=== PATIENT | female | born 1975 | race Caucasian/White ===

== ENCOUNTER 2025-05-20 03:03 | Inpatient (IN) | payer OTHER, SELFPAY ==
[2025-05-19 19:52] VITALS: BP 170/94
[2025-05-19 20:45] LABS: Hematocrit 39.3 % (37.0-47.0); Hemoglobin 12.7 g/dL (12.0-16.0); Mean Corp Hgb Conc. 32.3 g/dL (33.0-37.0); Mean Corpuscular Volume 82.6 fL (81.0-99.0); Nucleated Red Blood Cells % 0 %; Platelet Count 396 10^3/uL (130-400); Red Cell Dist. Width 14.6 % (11.5-14.5)
[2025-05-19] MEDS: NSS 1000 IV ×2 (20:45→22:24)
[2025-05-19] MEDS: ZOFRAN 4 MG IV (20:45)
[2025-05-19 21:23] LABS: ALT (SGPT) 22 U/L (0-35); AST (SGOT) 26 U/L (14-36); Albumin 4.6 g/dl (3.5-5.0); Alkaline Phosphatase 116 U/L (38-126); Blood Urea Nitrogen 15 mg/dl (7-17); Calcium 9.9 mg/dl (8.4-10.2); Carbon Dioxide 21 mmol/L (22-30); Chloride 105 mmol/L (98-107); Glucose 176 mg/dl (70-99); Lipase 142 U/L (23-300); Potassium 4.4 mmol/L (3.5-5.1); Sodium 138 mmol/L (135-145); Total Protein 7.8 g/dl (6.3-8.2); eGFR > 60.00
--- NOTE | 2025-05-19 22:00 | ED.GENMED ---
History of Present Illness
<Tracey Dent PA-C - Last Filed: 05/20/25 01:19>
General
Chief Complaint: Abdominal Symptoms
Source: patient and spouse
Exam Limitations: none
Time Seen by Provider: 05/19/25 21:38
History of Present Illness
History of Present Illness:
49yoF with a history of hypertension, prediabetes, and hypothyroidism presenting with her for evaluation of vomiting and diarrhea. Symptoms began 2 days ago with diarrhea she developed vomiting yesterday. She has vomited approximately 10
times in the last 24 hours. She also reports chills and abdominal discomfort. She believes her symptoms may be related to her Mounjaro. She had similar symptoms last week which resolved spontaneously. She denies any hematemesis, hematochezia,
chest pain, shortness of breath. No recent travel, sick contacts, suspicious food intake, or recent antibiotics.
Past History
<Tracey Dent PA-C - Last Filed: 05/20/25 01:19>
Past History
ED Past Medical History: None and NIDDM
ED Past Surgical History: Tonsilectomy
Social History
Tobacco: Non-smoker
Alcohol: None
Drug: None
Personal:
Living: with family
Phy Exam
<Tracey Dent PA-C - Last Filed: 05/20/25 01:19>
Physical Exam
Physical Exam:
Appears uncomfortable, dry heaving during exam, rigors noted
General Physical Exam
General Presentation: no apparent distress
General Skin: warm and dry
General Habitus: normal
General Mental: alert
ENT Exam
ENT Exam: normocephalic
Cardiovascular Exam
Cardiovascular Exam: regular rate/rhythm
Pulmonary Exam
Pulmonary Exam: lungs clear, no respiratory distress, no rales, no crackles, no rhonchi and no wheezing
Gastrointestinal Exam
Gastrointestinal Exam: soft, non distended and other (Generalized abdominal tenderness. Abdomen soft, nondistended. No rebound or guarding.)
Neurological Exam
Neurological Exam: alert
[place] Coma Scale
Eye Opening: Spontaneous
Verbal Response: Oriented
Motor Response: Obeys Commands
GCS Total Score: 15
Skin Exam
Skin Exam: normal color and warm/dry
<Nabil Holt DO - Last Filed: 05/20/25 01:44>
[place] Coma Scale
GCS Total Score: 15
Course
<Tracey Dent PA-C - Last Filed: 05/20/25 01:19>
Orders/Labs/Results
Orders:
Orders
05/19/25 20:20
IV Insert/Care/Rem.- Treatment PRN
05/19/25 20:39
Complete Blood Count/With Diff Urgent
Comprehensive Metabolic Panel Urgent
HCG, Serum Qualitative Screen Urgent
Comment: ADD ON
Lipase Urgent
05/19/25 20:40
0.9% Sodium Chloride 1000 ml [Nss] 1,000 ml IV BOLUS
Ondansetron Injectable [Zofran] 4 mg IV NOW STA
05/19/25 20:41
Ondansetron Injectable [Zofran] 4 mg .ROUTE .[facility] ONE
05/19/25 21:58
CDIFF [C difficile Antigen & Toxins] Urgent
ELIOT Source: Feces/Stool
Specimen Description:
Date Specimen was Collected: 05/19/25
Time Specimen was Collected: 22:39
Stool Culture Urgent
ELIOT Source: Feces/Stool
Specimen Description:
Date Specimen was Collected: 05/19/25
Time Specimen was Collected: 22:39
0.9% Sodium Chloride 1000 ml [Nss] 1,000 ml IV BOLUS
Diphenhydramine [Benadryl] 25 mg IV NOW STA
Ketorolac [Toradol] 15 mg IV NOW STA
Prochlorperazine [Compazine] 10 mg IV NOW STA
05/19/25 21:59
CT Abd/pelvis W Iv Cont Urgent
Comment:
Reason For Exam: generalized abd pain, vomiting, diarrhea, fever
05/19/25 22:06
Urinalysis Reflex To Culture Urgent
Date Specimen was Collected: 05/19/25
Time Specimen was Collected: 20:21
Urine Microscopic Reflex Cult Urgent
Urine Culture Urgent
ELIOT Source: U
Specimen Description:
Date Specimen was Collected: 05/19/25
Time Specimen was Collected: 20:21
05/19/25 22:17
Add On- LAB Urgent
Tests Added?: qualitative HCG
COVID-19 Antigen Urgent
Source: Nasal Swab
Lactate Level [Lactic Acid] Urgent
Influenza A+B Rapid Molecular Urgent
ELIOT Source: Nasal Swab
Specimen Description:
05/20/25 00:49
Electrocardiogram (*1) Urgent
Reason for Study: QTc Monitoring
EKG- Treatment ONCE
05/20/25 00:50
Ondansetron Injectable [Zofran] 4 mg IV NOW STA
05/20/25 01:26
Venous Blood Gas Urgent
%Oxygen/Room Air: room air
Abnormal Lab Results
05/19/25 05/19/25 05/19/25
20:39 22:06 22:17
WBC 13.4 H 10^3/uL
(4.8-10.8)
MCH 26.7 L pg
(27.0-31.0)
MCHC 32.3 L g/dL
(33.0-37.0)
RDW 14.6 H %
(11.5-14.5)
Abs Immat Gran (auto) 0.1 H 10^3/uL
(0-0.05)
Absolute Neuts (auto) 11.4 H 10^3/uL
(1.4-6.5)
Neutrophils % 85.5 H %
(42.2-75.2)
Lymphocytes % 10.3 L %
(20.5-51.1)
Carbon Dioxide 21 L mmol/L
(22-30)
Glucose 176 H mg/dl
(70-99)
Lactic Acid 2.2 H mmol/L
(0.7-2.0)
Urine Ketones 3+ A
(Negative)
Ur Occult Blood Reflex 4+ A
(Negative)
Leukocyte Esterase Rfl 1+ A
(Negative)
Urine RBC 3-6 A /HPF
(0-2)
Urine Bacteria (Reflex) Few A
(Negative)
Urine Albumin (Reflex) 1+ A
(Neg - Trace)
05/19/25 20:39
05/19/25 20:39
Vital Signs
Initial and Last Documented VS:
Initial Vital Signs
Temp Pulse Resp BP Pulse Ox
98.2 F 93 18 170/94 99
05/19/25 19:52 05/19/25 19:52 05/19/25 19:52 05/19/25 19:52 05/19/25 19:52
Last Documented Vital Signs
Temp Pulse Resp BP Pulse Ox
99.0 F 93 18 134/74 95
05/20/25 00:22 05/19/25 19:52 05/19/25 19:52 05/20/25 01:09 05/20/25 01:11
<Nabil Holt DO - Last Filed: 05/20/25 01:44>
Orders/Labs/Results
Orders:
Orders
05/19/25 20:20
IV Insert/Care/Rem.- Treatment PRN
05/19/25 20:39
Complete Blood Count/With Diff Urgent
Comprehensive Metabolic Panel Urgent
HCG, Serum Qualitative Screen Urgent
Comment: ADD ON
Lipase Urgent
05/19/25 20:40
0.9% Sodium Chloride 1000 ml [Nss] 1,000 ml IV BOLUS
Ondansetron Injectable [Zofran] 4 mg IV NOW STA
05/19/25 20:41
Ondansetron Injectable [Zofran] 4 mg .ROUTE .[facility] ONE
05/19/25 21:58
CDIFF [C difficile Antigen & Toxins] Urgent
ELIOT Source: Feces/Stool
Specimen Description:
Date Specimen was Collected: 05/19/25
Time Specimen was Collected: 22:39
Stool Culture Urgent
ELIOT Source: Feces/Stool
Specimen Description:
Date Specimen was Collected: 05/19/25
Time Specimen was Collected: 22:39
0.9% Sodium Chloride 1000 ml [Nss] 1,000 ml IV BOLUS
Diphenhydramine [Benadryl] 25 mg IV NOW STA
Ketorolac [Toradol] 15 mg IV NOW STA
Prochlorperazine [Compazine] 10 mg IV NOW STA
05/19/25 21:59
CT Abd/pelvis W Iv Cont Urgent
Comment:
Reason For Exam: generalized abd pain, vomiting, diarrhea, fever
05/19/25 22:06
Urinalysis Reflex To Culture Urgent
Date Specimen was Collected: 05/19/25
Time Specimen was Collected: 20:21
Urine Microscopic Reflex Cult Urgent
Urine Culture Urgent
ELIOT Source: U
Specimen Description:
Date Specimen was Collected: 05/19/25
Time Specimen was Collected: 20:21
05/19/25 22:17
Add On- LAB Urgent
Tests Added?: qualitative HCG
COVID-19 Antigen Urgent
Source: Nasal Swab
Lactate Level [Lactic Acid] Urgent
Influenza A+B Rapid Molecular Urgent
ELIOT Source: Nasal Swab
Specimen Description:
05/20/25 00:49
Electrocardiogram (*1) Urgent
Reason for Study: QTc Monitoring
EKG- Treatment ONCE
05/20/25 00:50
Ondansetron Injectable [Zofran] 4 mg IV NOW STA
05/20/25 01:26
Venous Blood Gas Urgent
%Oxygen/Room Air: room air
Abnormal Lab Results
05/19/25 05/19/25 05/19/25
20:39 22:06 22:17
WBC 13.4 H 10^3/uL
(4.8-10.8)
MCH 26.7 L pg
(27.0-31.0)
MCHC 32.3 L g/dL
(33.0-37.0)
RDW 14.6 H %
(11.5-14.5)
Abs Immat Gran (auto) 0.1 H 10^3/uL
(0-0.05)
Absolute Neuts (auto) 11.4 H 10^3/uL
(1.4-6.5)
Neutrophils % 85.5 H %
(42.2-75.2)
Lymphocytes % 10.3 L %
(20.5-51.1)
Carbon Dioxide 21 L mmol/L
(22-30)
Glucose 176 H mg/dl
(70-99)
Lactic Acid 2.2 H mmol/L
(0.7-2.0)
Urine Ketones 3+ A
(Negative)
Ur Occult Blood Reflex 4+ A
(Negative)
Leukocyte Esterase Rfl 1+ A
(Negative)
Urine RBC 3-6 A /HPF
(0-2)
Urine Bacteria (Reflex) Few A
(Negative)
Urine Albumin (Reflex) 1+ A
(Neg - Trace)
05/19/25 20:39
05/19/25 20:39
Vital Signs
Initial and Last Documented VS:
Initial Vital Signs
Temp Pulse Resp BP Pulse Ox
98.2 F 93 18 170/94 99
05/19/25 19:52 05/19/25 19:52 05/19/25 19:52 05/19/25 19:52 05/19/25 19:52
Last Documented Vital Signs
Temp Pulse Resp BP Pulse Ox
99.0 F 93 18 134/74 95
05/20/25 00:22 05/19/25 19:52 05/19/25 19:52 05/20/25 01:09 05/20/25 01:11
<Tracey Dent PA-C - Last Filed: 05/20/25 01:19>
MDM/Problems Addressed
Differential Diagnosis Includes:
49yoF here with diarrhea x 2 days and vomiting x 1 day. Rigors noted during initial exam. Temp in triage normal but repeat temperature is 100.4. Patient actively vomiting. No signs of peritonitis on abdominal exam. Differential diagnosis includes
but is not limited to: Gastroenteritis, viral illness, colitis, diverticulitis, appendicitis, SBO
Initial ED plan: Workup initiated in triage. Leukocytosis noted with a white count of 13.4 which is possibly reactive secondary to vomiting. Will check lactate, COVID/flu swab, stool studies, UA, and CT abdomen. Patient received IV Zofran in
triage without improvement. Will trial IV Compazine/Benadryl.
<Tracey Dent PA-C - Last Filed: 05/20/25 01:19>
*Pulse Oximetry
SaO2: 99
Oxygen Mode of Delivery: Room air
Patient hypoxic: no
*EKG
Interpreted by ED Provider?: Yes
EKG Intrepretation Date: 05/20/25
Heart Rate: 84
Rate: normal
Rhythm: sinus
[place]: normal axis
Interval: normal interval
QRS Pattern: normal QRS
Ischemia: no ischemia
*Critical Care Note
Total Time (30-74mins, 75-104mins- exclusive of procedures): Not Applicable
<Tracey Dent PA-C - Last Filed: 05/20/25 01:19>
Update Note
Update Note:
Lactate 2.2. Viral testing negative. Preliminary [facility]ology report is negative for acute findings. UA with >30/LPF squamous epithelial cells suggesting contaminated sample. Patient with persistent vomiting despite multiple rounds of
antiemetics and failed p.o. challenge. Will admit for intractable symptoms.
ED Attending Note
<Tracey Dent PA-C - Last Filed: 05/20/25 01:19>
-
Portions of this chart may have been created with voice recognition software.� Occasional wrong word or��sound alike� substitutions may have occurred due to the inherent limitations of voice recognition software.
<Nabil Holt DO - Last Filed: 05/20/25 01:44>
ED Attending Note
Patient seen and examined by attending physician: Yes
I performed the substantive portion of visit, reviewed & personally made and approve the management plan that is documented in note by myself or ELOISE.: Yes
ED Attending Note:
49-year-old female who presents with intractable nausea and vomiting. Previous records reviewed including an admission in January 2022 for the same. Patient states she feels similar to the admission from that time.. She is on Mounjaro but has no
recent changes to the dosages. No obvious sick contacts. Nausea persist and unable to tolerate oral intake despite several rounds of antiemetics and IV fluids.
Discharge Plan
Departure
Patient Disposition: Admit
Date of Disposition: 05/20/25
Time of Disposition: 01:00
Presentation/result/management discussed w/ accepting MD/DO: Hospitalist
Discharge Problem:
Intractable nausea and vomiting
Prescriptions:
No Action
levothyroxine [Synthroid] 175 mcg Tablet
175 mcg PO DAILY
ondansetron 4 mg tablet,disintegrating
4 mg PO Q8HPRN PRN (Reason: nausea and vomiting) Qty: 10 0RF
amlodipine 5 mg Tablet
5 mg PO DAILY Qty: 30 0RF
pantoprazole [Protonix] 40 mg tablet,delayed release (DR/EC)
40 mg PO DAILY Qty: 30 0RF
Referrals:
UNKNOWN,NO INTERVIEW [Family Provider]
Interventions
Interventions:
*Risk Screen - Suicide Last Done: 05/19/25 19:54
*General Assessment Last Done: 05/19/25 20:46
*Neglect/Abuse Screening Last Done: 05/19/25 19:54
*ED- Fall Risk Assessment Last Done: 05/19/25 20:46
*ED COVID-19 Vaccine History Last Done: 05/19/25 20:46
*ED Influenza Vaccine History Last Done: 05/19/25 20:46
[id number] Assessment Last Done: 05/19/25 20:45
Discharge Date and Time
Print Language: BURKINAN
[2025-05-19 22:04] VITALS: BP 104/65; BMI 39.4
[2025-05-19 22:11] LABS: Urine Character Clear (Clear)
[2025-05-19] MEDS: COMPAZINE 10 MG IV (22:25)
[2025-05-19] MEDS: TORADOL 15 MG IV (22:26)
[2025-05-19] MEDS: BENADRYL 25 MG IV (22:28)
[2025-05-19 22:29] LABS: Urine Squamous Cell >30 /LPF (Few)
[2025-05-19 22:44] LABS: COVID-19 Antigen Negative (Negative)
[2025-05-19 22:47] LABS: HCG, Serum Qualitative Screen Negative
[2025-05-20] MEDS: ZOFRAN 4 MG IV ×3 (01:02→13:21)
[2025-05-20 01:09] VITALS: BP 134/74
[2025-05-20 01:56] LABS: Venous Blood Gas B.E. -0.4 mmol/L (-4 to +4); Venous Blood Gas O2 Sat % 92.7 %
[2025-05-20 02:00] VITALS: BP 120/57
--- NOTE | 2025-05-20 02:48 | HPS.HSE ---
Family Physician
-
Family Physician: NO INTERVIEW UNKNOWN
Chief Complaint
-
N/V/D
History of Present Illness
Patient is a 49y F with PMH significant for obesity and hypothyroidism who presents to ED complaining of N/V/D x 2 days. Patient states that she took her most recent dose of Mounjaro on Friday. That afternoon she developed diarrhea. Yesterday
she had diarrhea and N/V. Today she has had continued N/V, but no further diarrhea. Patient denies any recent travel, unusual food ingestions, etc. Her feels well and has no GI symptoms.
Patient has been on Mounjaro for > 1 year. No recent dose changes, etc.
She had a similar admission 3 years ago that was ultimately attributed to Ozempic. No clear evidence of infection was discovered at that time.
Medical History
Past Medical History
Past Medical History: Reports Other
Additional Past Medical History:
Hypothyroidism
Obesity
Impaired Fasting Glucose
Past Surgical History: Reports Other
Additional Past Surgical History:
T&A
Right Knee Arthroscopy
Right Lumpectomy (Benign)
Social History
Tobacco: Non-smoker
Alcohol: None
Drug: None
Family History
Family History: Other (Father: Prostate Cancer, DM-II Brother: Testicular Cancer Mother: HTN, DM-II)
Allergies / Home Medications
Allergies reflects when Allergies were last updated in [employer].
Home Medications with original date entered in [employer]
Allergy/Medication List:
Allergies
Allergy/AdvReac Type Severity Reaction Status Date / Time
acetaminophen (From Percocet) Allergy Rash Verified 01/31/22 23:21
oxycodone (From Percocet) Allergy Rash Verified 01/31/22 23:21
Home Medications
atorvastatin 20 mg tablet 20 mg PO HS 05/20/25
levothyroxine 175 mcg tablet (Synthroid) 175 mcg PO DAILY 05/20/25
losartan 50 mg tablet 50 mg PO DAILY 05/20/25
pantoprazole 40 mg tablet,delayed release 40 mg PO DAILY 05/20/25
tirzepatide 15 mg/0.5 mL subcutaneous pen injector (Mounjaro) 15 mg SC TU 05/20/25
vibegron 75 mg tablet (Gemtesa) 75 mg PO DAILY 05/20/25
Review of Systems
-
History Source: Patient
A 12 point ROS was completed and negative except as noted: Yes
Constitutional: Reports Fatigue; Denies Fever or Chills
Respiratory: Denies Cough or Trouble Breathing
Cardiac: Denies Chest Pain or Palpitations
Abdomen/GI: Reports Abdominal Pain, Nausea, Vomiting and Diarrhea; Denies Bloody Stools or Black Stools
: Denies Dysuria, Frequency or Flank Pain
Musculoskeletal: Denies Joint Pain or Edema
Neurological: Denies Dizzy or Headache
Psych: Denies Depression or Anxiety
Physical Exam
Vital Signs
Vital Signs
Temp Pulse Resp BP Pulse Ox
99.0 F 93 18 120/57 97
05/20/25 00:22 05/19/25 19:52 05/19/25 19:52 05/20/25 02:00 05/20/25 02:30
Physical Exam
General: Other (Ill-appearing 49y F in mild-moderate distress due to nausea.)
HEENT: Moist mucous membranes and PERRLA
Respiratory: Clear; No Wheezes, Rales or Rhonchi
Cardiac: S1/S2, Regular Rhythm and Murmur (II/ MAURI)
GI: Soft and Other (Mildly , diffusely tender. Pos BS.)
Musculoskeletal: No Clubbing, No Cyanosis and No Edema
Neuro: AO x 3
Laboratory Results
-
05/19/25 20:39
05/19/25 20:39
Laboratory Results
Lactic Acid 2.2 mmol/L (0.7-2.0) H 05/19/25 22:17
Total Bilirubin 0.8 mg/dl (0.2-1.3) 05/19/25 20:39
AST 26 U/L (14-36) 05/19/25 20:39
ALT 22 U/L (0-35) 05/19/25 20:39
Alkaline Phosphatase 116 U/L (38-126) 05/19/25 20:39
Lipase 142 U/L (23-300) 05/19/25 20:39
Impression/Plan
-
A/P: Patient is a 49y F with PMH significant for hypothyroidism and obesity who presents to ED complaining of N/V/D x 3 days.
Gastroenteritis
Intractable N/V/D
- Admit for further evaluation and treatment.
- Suspect viral gastroenteritis given fever, symptoms, etc.
- Less likely related to Mounjaro as not new / no recent dose changes / etc.
- Supportive care including IVFs, antiemetics, etc.
- Check stools studies if there is further diarrhea.
- Monitor for improvement in symptoms.
- Consider GI evaluation if symptoms worsen or persist.
Cholelithiasis
- Seen on CT scan this evening (and during prior admission as well)
- No abnormalities noted other than presence of stones.
- No GB thickening or pericholecystic fluid.
- No abnormalities in LFTs to suggest cholestasis / obstruction.
- Doubt her current presentation is related to cholelithiasis.
- Consider HIDA, etc if symptoms persist or there is concern for cholecystitis.
Hematuria
- UA with 4+ blood. No evidence of infection.
- CT done this evening with no obstructive uropathy. Done with IV contrast.
- No flank pain or urinary symptoms.
Hypothyroidism
- Continue T4 supplementation.
- Update TFTs.
Obesity due to excess calories
- Affects all aspects of care.
- Hold Mounjaro acutely (last dose of Friday just prior to symptom onset)
DVT Prophylaxis: SCDs
Code Status: Full
[2025-05-20] MEDS: LR 1000 IV ×3 (03:39→19:21)
[2025-05-20 05:20] LABS: Hematocrit 36.9 % (37.0-47.0); Hemoglobin 11.6 g/dL (12.0-16.0); Mean Corp Hgb Conc. 31.4 g/dL (33.0-37.0); Mean Corpuscular Volume 85.8 fL (81.0-99.0); Platelet Count 345 10^3/uL (130-400); Red Cell Dist. Width 14.7 % (11.5-14.5)
[2025-05-20 05:30] LABS: Blood Urea Nitrogen 14 mg/dl (7-17); Calcium 9.0 mg/dl (8.4-10.2); Carbon Dioxide 20 mmol/L (22-30); Chloride 111 mmol/L (98-107); Estimated Creatinine Clearance 117 ml/min; Glucose 150 mg/dl (70-99); Magnesium 2.0 mg/dl (1.6-2.3); Potassium 4.4 mmol/L (3.5-5.1); Sodium 141 mmol/L (135-145); eGFR > 60.00
[2025-05-20 06:58] VITALS: BP 123/68
[2025-05-20] MEDS: REGLAN 5 MG IV (08:22)
[2025-05-20] MEDS: SYNTHROID PO (08:26)
[2025-05-20] MEDS: PROTONIX IV 40 MG IV (08:27)
--- NOTE | 2025-05-20 10:19 | CM ---
Chart reviewed and met with patient at bedside
Lives in a 3 story home with . 5 RITA
PLOF independent with ADLs, ambulation and drives
no DME
PCP is Dr. Foremna
Has RX plan
Pharmacy is [facility] in [place].
no hx of VN nor SNF
DCP is to go home with no services vs services depending on her medical needs
can provide transportation
CM will continue to follow up with any dcp needs
[2025-05-20] MEDS: REGLAN 10 MG IV ×2 (11:45→20:34)
[2025-05-20 15:00] VITALS: BP 161/93
[2025-05-20 15:50] VITALS: BMI 38.9
--- NOTE | 2025-05-20 18:04 | W.PN.UPDATE ---
Update Note
Progress Note Update
Patient continues to have intractable nausea/vomiting
added Reglan scheduled to regimen
changed Zofran to Compazine prn
qtc check in the morning
giving decadron 4mg x1 empirically for now
will involve GI for further evaluation in morning
[2025-05-20] MEDS: COMPAZINE 5 MG IV (18:23)
[2025-05-20] MEDS: DECADRON 4 MG IV (18:24)
[2025-05-20] MEDS: BENADRYL 12.5 MG IV (22:57)
[2025-05-20 23:17] VITALS: BP 147/88
[2025-05-21] MEDS: LR 1000 IV ×4 (01:00→22:20)
[2025-05-21] MEDS: COMPAZINE 5 MG IV ×2 (01:02→08:02)
[2025-05-21] MEDS: REGLAN 10 MG IV ×3 (03:48→20:12)
[2025-05-21 05:16] VITALS: BMI 39.2
[2025-05-21 06:29] LABS: Blood Urea Nitrogen 16 mg/dl (7-17); Calcium 9.1 mg/dl (8.4-10.2); Carbon Dioxide 27 mmol/L (22-30); Chloride 106 mmol/L (98-107); Estimated Creatinine Clearance 91 ml/min; Glucose 128 mg/dl (70-99); Lipase 79 U/L (23-300); Potassium 4.2 mmol/L (3.5-5.1); Sodium 139 mmol/L (135-145); eGFR > 60.00
[2025-05-21 07:15] VITALS: BP 154/77
[2025-05-21] MEDS: PROTONIX IV 40 MG IV (07:59)
[2025-05-21] MEDS: SYNTHROID PO (08:03)
[2025-05-21] MEDS: FLUSH (NSS) 2 FLUSH IV ×4 (08:03→16:16)
[2025-05-21] MEDS: BENADRYL 25 MG IV (09:27)
--- NOTE | 2025-05-21 11:14 | CON.GI ---
Consultation
-
Date/Time Consultation Performed: 05/21/25
Performing Provider: Desmond Gentile MD
Reason for Consultation: Nausea
Medical History
Chief Complaint / HPI
Chief Complaint: nausea
History of Present Illness:
The patient is a 49-year-old female past medical history as noted who presents with nausea and vomiting. Her symptoms started a bit more than a week ago initially with vomiting and diarrhea, started to improve and then had significantly worsened
nausea with vomiting. She has early satiety over this past week as well. She has not had any further diarrhea since admission. She denies any bloody diarrhea. Denies any sick contacts, fever chills or bloody emesis. She has been on Mounjaro for
some time without any dose changes though did take her Mounjaro on last Friday, before symptoms started. She had similar symptoms a few years ago attributed to Ozempic, though had been tolerating Mounjaro. She has had an endoscopy some years ago,
usually follows with GI at [place].
Past Medical History
Past Medical History: Other (Obesity, hypothyroid, previous nausea vomiting.)
Past Surgical History: Other (TNA, right knee arthroscopy)
Social History
Tobacco: Non-Smoker
Alcohol: None
Family History
Family History: Reviewed & Not Pertinent
Allergies / Home Medications
Allergy/AdvReac Type Severity Reaction Status Date / Time
acetaminophen (From Percocet) Allergy Rash Verified 01/31/22 23:21
oxycodone (From Percocet) Allergy Rash Verified 01/31/22 23:21
�Medication �Instructions �Recorded
atorvastatin 20 mg tablet 20 mg PO HS High Cholesterol 05/20/25
levothyroxine 175 mcg tablet 175 mcg PO DAILY Thyroid 05/20/25
(Synthroid)
losartan 50 mg tablet 50 mg PO DAILY Blood Pressure 05/20/25
pantoprazole 40 mg tablet,delayed 40 mg PO DAILY gerd 05/20/25
release
tirzepatide 15 mg/0.5 mL 15 mg SC TU Weight Gain 05/20/25
subcutaneous pen injector
(Mounjaro)
vibegron 75 mg tablet (Gemtesa) 75 mg PO DAILY Urinary Issue 05/20/25
Review of Systems
-
All other systems: A 12 pt ROS was Negative except as stated above in HPI
Vital Signs
Temp Pulse Resp BP Pulse Ox
98.7 F 70 20 154/77 96
05/21/25 07:15 05/21/25 07:15 05/21/25 07:15 05/21/25 07:15 05/21/25 08:00
Physical Exam
Exam
General: NAD
HEENT: MMM, anicteric, no lymphadenopathy
Heart: Regular, no murmurs
Lungs: CTA bilaterally
Abdomen: normal bowel sounds, soft, no tenderness, no rebound or guarding, no masses, bruits or ascites
Extremeties: no edema
Skin: no rashes
Results
WBC 13.5 10^3/uL (4.8-10.8) H 05/20/25 04:59
Hgb 11.6 g/dL (12.0-16.0) L 05/20/25 04:59
Hct 36.9 % (37.0-47.0) L 05/20/25 04:59
MCV 85.8 fL (81.0-99.0) 05/20/25 04:59
Plt Count 345 10^3/uL (130-400) 05/20/25 04:59
Absolute Neuts (auto) 11.4 10^3/uL (1.4-6.5) H 05/19/25 20:39
Sodium 139 mmol/L (135-145) 05/21/25 05:29
Potassium 4.2 mmol/L (3.5-5.1) 05/21/25 05:29
Chloride 106 mmol/L (98-107) 05/21/25 05:29
Carbon Dioxide 27 mmol/L (22-30) 05/21/25 05:29
BUN 16 mg/dl (7-17) 05/21/25 05:29
Creatinine 0.9 mg/dL (0.6-1.0) 05/21/25 05:29
Calcium 9.1 mg/dl (8.4-10.2) 05/21/25 05:
Total Bilirubin 0.8 mg/dl (0.2-1.3) 05/19/25 20:39
AST 26 U/L (14-36) 05/19/25 20:39
ALT 22 U/L (0-35) 05/19/25 20:39
Alkaline Phosphatase 116 U/L (38-126) 05/19/25 20:39
Lipase 79 U/L (23-300) 05/21/25 05:29
Diagnostic Image Results:
CT:
IMPRESSION:
1. No acute intra-abdominal process identified.
2. Small hiatal hernia.
3. Cholelithiasis.
4. Hepatic fatty infiltration.
Prior GI Procedures:
EGD:
Colonoscopy:
Assessment / Plan
-
1. Nausea/vomiting: With symptoms that initially started with vomiting and diarrhea more than a week ago, now with persistent early satiety nausea and vomiting, likely initial viral gastroenteritis with now postinfectious delayed gastric emptying
compounded with GLP-1. CT scan otherwise unremarkable, labs otherwise remarkable, exam is benign. At this point we discussed continued supportive care, antiemetics, IV fluids. If no improvement then could consider endoscopy on Friday though other
etiologies including peptic ulcer disease seem very unlikely. We discussed dietary modifications moving forward including small, frequent, low bulky meals when she is feeling better.
-
-
Thank you for consultation and allowing me to participate in the patient's care. Please call the central control room operator GI physician during the after hours with any questions or concerns.
--- NOTE | 2025-05-21 13:00 | PTCARENOTE ---
Pt given scheduled dose of raglan and and 30 min later vomited bile, est 2 cups.
--- NOTE | 2025-05-21 13:27 | W.PN.HOSP.TC ---
Today's Communication/Plan
-
Patient continued to have intractable nausea vomiting
Remains at risk of cardiotoxicity from need of dual antiemetics
encourage oral intake as tolerated
Assessment / Plan
Assessment / Plan
Gastroenteritis
Intractable N/V/D - persisting
- Suspect viral gastroenteritis given fever, symptoms, etc.
- Patient using Mounjaro although no recent change in medication likely making patient prone for persistent nausea vomiting
- Patient currently on regimen of Reglan scheduled and Compazine as needed
- Given empiric Decadron 4mg yesterday in light of persistent symptoms
- GI evaluated and help appreciated.
Cholelithiasis
- Seen on CT scan this evening (and during prior admission as well)
- No abnormalities noted other than presence of stones.
- No GB thickening or pericholecystic fluid.
Hematuria
- UA with 4+ blood. No evidence of infection.
- CT done this evening with no obstructive uropathy. Done with IV contrast.
- No flank pain or urinary symptoms.
Hypothyroidism
- Continue T4 supplementation.
- Update TFTs.
Obesity due to excess calories
- Affects all aspects of care.
- Hold Mounjaro acutely (last dose of Friday just prior to symptom onset)
DVT Prophylaxis: SCDs
Code Status: Full
Care plan discussed with gastroenterology
Total time spent 50 minutes
Anticipated Discharge: 24 - 48 hours
Subjective/Interval History
-
Date of Service: May 21, 2025
continues to have nausea
no vomiting
no abd pain
Objective Data
-
Labs:
Laboratory Results
05/21/25
05:29
Sodium 139
Potassium 4.2
Chloride 106
Carbon Dioxide 27
BUN 16
Creatinine 0.9
Glucose 128 H
Calcium 9.1
Vital Signs:
Vital Signs
Temp Pulse Resp BP Pulse Ox
98.7 F 70 20 154/77 96
05/21/25 07:15 05/21/25 07:15 05/21/25 07:15 05/21/25 07:15 05/21/25 08:00
I&O
05/20/25 05/21/25 05/22/25
06:59 06:59 05:59
Intake Total 2039
Balance 2039
Review of Systems
-
Respiratory: Reports No Symptoms
Cardiac: Reports No Symptoms
Abdomen/GI: Reports Nausea; Denies Abdominal Pain or Vomiting
Physical Exam
-
General: Obese
HEENT: Negative Oxygen
Cardiac: Regular Rhythm and S1/S2; Negative Murmur
GI: Soft, Nontender and Nondistended
Neuro: Awake, Alert and Oriented
[2025-05-21 15:20] VITALS: BP 149/80
[2025-05-21] MEDS: COMPAZINE 10 MG IV ×2 (16:16→22:21)
[2025-05-21 22:28] VITALS: BP 138/72
[2025-05-22] MEDS: LR 1000 IV ×3 (03:50→19:47)
[2025-05-22] MEDS: REGLAN 10 MG IV ×2 (03:51→11:49)
[2025-05-22] MEDS: SYNTHROID PO ×2 (03:52→06:31)
[2025-05-22 05:01] VITALS: BMI 39.3
[2025-05-22 07:25] VITALS: BP 167/93
[2025-05-22 08:15] LABS: Blood Urea Nitrogen 14 mg/dl (7-17); Calcium 8.6 mg/dl (8.4-10.2); Carbon Dioxide 28 mmol/L (22-30); Chloride 100 mmol/L (98-107); Estimated Creatinine Clearance 102 ml/min; Glucose 106 mg/dl (70-99); Potassium 3.8 mmol/L (3.5-5.1); Sodium 134 mmol/L (135-145); eGFR > 60.00
[2025-05-22] MEDS: FLUSH (NSS) 2 FLUSH IV ×2 (09:09→11:47)
[2025-05-22] MEDS: PROTONIX IV 40 MG IV (09:10)
[2025-05-22] MEDS: SYNTHROID 175 MCG PO (09:10)
[2025-05-22] MEDS: COMPAZINE 10 MG IV ×2 (09:11→19:52)
--- NOTE | 2025-05-22 09:54 | W.PN.GI.CBS2 ---
Today's Communication / Plan
-
Please see assessment and plan for details.
Assessment / Plan
-
1. Nausea/vomiting: With symptoms that initially started with vomiting and diarrhea more than a week ago, now with persistent early satiety nausea and vomiting, likely initial viral gastroenteritis with now postinfectious delayed gastric emptying
compounded with GLP-1. CT scan otherwise unremarkable, labs otherwise remarkable, exam is benign. I reviewed obstruction series, no obvious ileus or obstruction though await official reading. At this point we discussed continued supportive care,
antiemetics, IV fluids. If no improvement then could consider endoscopy tomorrow.
Subjective
Subjective
Date of Service: May 22, 2025
Patient thing okay, had some episodes of vomiting overnight, though this morning states that feels a bit better, less frequent episodes. No bowel movements. No fevers or chills.
Objective
Data Reviewed
Laboratory Data:
Laboratory Results
05/20/25 04:59
05/22/25 07:00
Laboratory Results
Magnesium 2.0 mg/dl (1.6-2.3) 05/20/25 04:59
Total Bilirubin 0.8 mg/dl (0.2-1.3) 05/19/25 20:39
AST 26 U/L (14-36) 05/19/25 20:39
ALT 22 U/L (0-35) 05/19/25 20:39
Alkaline Phosphatase 116 U/L (38-126) 05/19/25 20:39
Lipase 79 U/L (23-300) 05/21/25 05:29
Vital Signs and I&O:
Vital Signs
Temp Pulse Resp BP Pulse Ox
98.8 F 69 20 167/93 97
05/22/25 07:25 05/22/25 07:25 05/22/25 07:25 05/22/25 07:25 05/22/25 07:25
I&O
05/21/25 05/22/25 05/23/25
06:59 05:59 06:59
Intake Total 2039
Balance 2039
Physical Exam
Physical Exam
General: NAD
Abdomen: normal bowel sounds, soft, minimal right lower quadrant tenderness, no masses or bruits, no ascites
--- NOTE | 2025-05-22 13:13 | W.PN.HOSP.TC ---
Today's Communication/Plan
-
Abdominal x-ray reviewed, no acute findings
Continue supportive care
Encourage oral intake as tolerated
Assessment / Plan
Assessment / Plan
Gastroenteritis
Intractable N/V/D - persisting
- Suspect viral gastroenteritis given fever, symptoms, etc.
- Patient using Mounjaro although no recent change in medication likely making patient prone for persistent nausea vomiting
- Patient currently on regimen of Reglan scheduled and Compazine as needed. QTc 430ms yesterday, repeat check ordered.
- Given empiric Decadron 4mg on admission
- GI involved in care and recommended medical management. May consider EGD if continues to have symptoms
- Abdominal x-ray done as exam today suggestive of possible distention/tympanic bowel sound although no signs of ileus/obstruction on x-ray
Cholelithiasis
- Seen on CT scan this evening (and during prior admission as well)
- No abnormalities noted other than presence of stones.
- No GB thickening or pericholecystic fluid.
Hematuria
- UA with 4+ blood. No evidence of infection.
- CT done this evening with no obstructive uropathy. Done with IV contrast.
- No flank pain or urinary symptoms.
Hypothyroidism
- Continue T4 supplementation.
- Update TFTs.
Obesity due to excess calories
- Affects all aspects of care.
- Hold Mounjaro acutely (last dose of Friday just prior to symptom onset)
Essential HTN
- Uncontrolled as not able to take oral medication
- As needed hydralazine ordered for systolic BP greater then 160
DVT Prophylaxis: SCDs
Code Status: Full
Care plan discussed with gastroenterology
Anticipated Discharge: 24 - 48 hours
Subjective/Interval History
-
Date of Service: May 22, 2025
Continues to feel nauseous, reported vomiting episode overnight
Denies abdominal pain
Afebrile
Objective Data
-
Labs:
Laboratory Results
05/22/25
07:00
Sodium 134 L
Potassium 3.8
Chloride 100
Carbon Dioxide 28
BUN 14
Creatinine 0.8
Glucose 106 H
Calcium 8.6
Vital Signs:
Vital Signs
Temp Pulse Resp BP Pulse Ox
98.8 F 69 20 167/93 97
05/22/25 07:25 05/22/25 07:25 05/22/25 07:25 05/22/25 07:25 05/22/25 07:25
I&O
05/21/25 05/22/25 05/23/25
06:59 05:59 06:59
Intake Total 2039 3440 / 3440
Balance 2039 3440 / 3440
Review of Systems
-
Respiratory: Reports No Symptoms
Cardiac: Reports No Symptoms
Abdomen/GI: Reports Nausea and Vomiting; Denies Abdominal Pain
Physical Exam
-
General: Obese
HEENT: Negative Oxygen
Cardiac: Regular Rhythm and S1/S2; Negative Murmur
GI: Soft, Nontender and Distended; Negative Normal Bowel Sounds (Tympanic)
Neuro: Awake, Alert and Oriented
[2025-05-22 15:30] VITALS: BP 155/81
[2025-05-22] MEDS: REGLAN IV (21:33)
[2025-05-22 23:33] VITALS: BP 143/84
[2025-05-23] MEDS: LR 1000 IV ×2 (02:16→09:23)
[2025-05-23] MEDS: REGLAN IV ×2 (04:33→12:52)
[2025-05-23 05:41] VITALS: BMI 39.2
[2025-05-23] MEDS: SYNTHROID 175 MCG PO (05:48)
--- NOTE | 2025-05-23 06:01 | W.PN.GI.CBS2 ---
Today's Communication / Plan
-
Please assessment and plan for details.
Assessment / Plan
-
1. Nausea/vomiting: With symptoms that initially started with vomiting and diarrhea more than a week ago, now with persistent early satiety nausea and vomiting, likely initial viral gastroenteritis with now postinfectious delayed gastric emptying
compounded with GLP-1. CT scan otherwise unremarkable, labs otherwise remarkable, exam is benign. Repeat obstruction series negative. She is feeling much better overnight, the first night with no vomiting. Will continue supportive care, if
improving can advance diet to full liquids later today. Given improvement will hold on endoscopy for now.
Subjective
Subjective
Date of Service: May 23, 2025
Patient feeling better overnight, first night that she is not had any vomiting. Still slightly nauseous though again much improved.
Objective
Data Reviewed
Laboratory Data:
Laboratory Results
05/20/25 04:59
Laboratory Results
Magnesium 2.0 mg/dl (1.6-2.3) 05/20/25 04:59
Total Bilirubin 0.8 mg/dl (0.2-1.3) 05/19/25 20:39
AST 26 U/L (14-36) 05/19/25 20:39
ALT 22 U/L (0-35) 05/19/25 20:39
Alkaline Phosphatase 116 U/L (38-126) 05/19/25 20:39
Lipase 79 U/L (23-300) 05/21/25 05:29
Vital Signs and I&O:
Vital Signs
Temp Pulse Resp BP Pulse Ox
99.2 F 72 18 143/84 94
05/22/25 23:33 05/22/25 23:33 05/22/25 23:33 05/22/25 23:33 05/22/25 23:33
I&O
05/21/25 05/22/25 05/23/25
06:59 05:59 06:59
Intake Total 2039 3440 / 3440 2419 / 2419
Balance 2039 / 2419
Physical Exam
Physical Exam
General: NAD
Abdomen: normal bowel sounds, soft, no tenderness, no masses or bruits, no ascites
[2025-05-23 07:18] VITALS: BP 153/98
[2025-05-23 09:11] LABS: Blood Urea Nitrogen 9 mg/dl (7-17); Calcium 9.0 mg/dl (8.4-10.2); Carbon Dioxide 29 mmol/L (22-30); Chloride 97 mmol/L (98-107); Estimated Creatinine Clearance 102 ml/min; Glucose 108 mg/dl (70-99); Potassium 3.8 mmol/L (3.5-5.1); Sodium 134 mmol/L (135-145); eGFR > 60.00
[2025-05-23] MEDS: NSS (PRESERVATIVE FREE) 10 ML IV (09:15)
[2025-05-23] MEDS: PROTONIX IV 40 MG IV (09:15)
--- NOTE | 2025-05-23 13:13 | W.PN.HOSP.TC ---
Today's Communication/Plan
-
Advance diet
Assessment / Plan
Assessment / Plan
Physical exam:
General: Well Developed, Well Nourished and No Apparent Distress
HEENT: Normocephalic, Atraumatic and Moist Mucous Membranes
Respiratory: Clear to Auscultation; Negative Wheezes, Rales or Rhonchi
Cardiac: Regular Rhythm and S1/S2
GI: Soft, Nontender and Nondistended
Musculoskeletal: No Clubbing, No Cyanosis and No Edema
Neuro: Awake, Alert and Oriented, no neurological deficit
Psych: Calm
A/P:
Acute gastroenteritis and some degree of gastroparesis from GLP-1 use:
Start full liquid diet today and advance as tolerated
Stop IV fluids
GI not planning doing EGD since patient improving
Advised to stay off Mounjaro and check for other options as outpatient
On PPI and IV Reglan
Plan to discharge either later today or in a.m.
Hypothyroidism:
Continue thyroid replacement
DVT Prophylaxis: SCDs
Code Status: Full
Total time spent on today's encounter was 35 minutes which included time spent in counseling the patient/family regarding diagnosis and treatment plan as listed above, goals of care, and symptom management. Case was discussed with nursing staff,
specialists, and care coordinators/case management. All labs and imaging personally reviewed by me. Remainder the time spent in detailed review of previous records, lab data, imaging, and other medical provider documentation.
Anticipated Discharge: Within 24 hours
Subjective/Interval History
-
Date of Service: May 23, 2025
Patient feels better, no vomiting, less nausea. Afebrile
Objective Data
-
Labs:
Laboratory Results
05/23/25
08:10
Sodium 134 L
Potassium 3.8
Chloride 97 L
Carbon Dioxide 29
BUN 9
Creatinine 0.8
Glucose 108 H
Calcium 9.0
Vital Signs:
Vital Signs
Temp Pulse Resp BP Pulse Ox
98.4 F 76 18 153/98 100
05/23/25 07:18 05/23/25 07:18 05/23/25 07:18 05/23/25 07:18 05/23/25 07:18
I&O
05/22/25 05/23/25 05/24/25
05:59 06:59 06:59
Intake Total 3440 / 3440 2420 / 2420
Balance 3440 / 3440 2420 / 2420
--- NOTE | 2025-05-23 13:51 | CM ---
Chart reviewed. Care ongoing
Plan to discharge either later today or in a.m.
Diet advanced
Plan: Home, no needs
[2025-05-23 15:02] VITALS: BP 155/94
--- NOTE | 2025-05-23 15:20 | W.DCSUMMARY ---
Discharge Summary
Discharge Data
Date of Admission: 05/20/25
Date of Discharge: 05/23/25
-
Pending Results: No
Hospital Course
Patient 49 years old female with history of hypothyroidism, obesity, presented to the hospital with persistent nausea and vomiting. Patient was treated with supportive care and antiemetics. GI was consulted. It was felt that she had some sort of
viral gastroenteritis and some postinfectious delayed gastric emptying compounded with the fact that she has been taking GLP-1 Mounjaro as outpatient. Patient was considered to have an upper endoscopy but this was canceled since patient improved
substantially and was able to tolerate diet to low residue without significant problems. Patient is eager to go home today. She was instructed to stay off GLP-1 for now and reevaluate as outpatient. She will be discharged in stable condition
today.
Discharge Plan
-
Patient Disposition: Home (Routine Discharge)
Discharge Diagnosis/Procedures: Acute gastroenteritis.
Diet: Low Residue
Activity: As tolerated
Blood Work: Please PCP to order CBC, BMP within 1 week
Referrals:
Primary care provider [Other] - in less than 1 week
UNKNOWN,NO INTERVIEW [Family Provider]
Prescriptions:
Continued
losartan 50 mg tablet
50 mg PO DAILY
levothyroxine [Synthroid] 175 mcg tablet
175 mcg PO DAILY
atorvastatin 20 mg tablet
20 mg PO HS
pantoprazole 40 mg tablet,delayed release (DR/EC)
40 mg PO DAILY
Gemtesa 75 mg tablet
75 mg PO DAILY
Mounjaro 15 mg/0.5 mL pen injector
15 mg SC TU
Discharge Orders:
Discharge Patient (As Directed); Ordered 05/23/25
Ordered By: Glen Matos
Discharge Date and Time
Discharge Date/Time: 05/23/25 16:10
Print Language: YORUBA
== END 2025-05-23 16:10 | disposition home or self-care (01) | DRG 392 ==
LOC: 2 NORTH 03:03
PROVIDERS: Hospitalist; Physician Assistant; ADMITTING PHYSICIAN Hospitalist; ATTENDING PHYSICIAN Hospitalist; CONSULT PHYSICIAN Internal Medicine Gastroenterology; EMERGENCY PHYSICIAN Emergency Medicine
DX: K52.9 Noninfective gastroenteritis and colitis, unspecified (principal); Z11.52 Encounter for screening for COVID-19; K80.20 Calculus of gallbladder without cholecystitis without obstruction; E03.9 Hypothyroidism, unspecified; E66.09 Other obesity due to excess calories; Z68.39 Body mass index [BMI] 39.0-39.9, adult; I10 Essential (primary) hypertension; K31.84 Gastroparesis; Z79.899 Other long term (current) drug therapy
CPT/HCPCS: 74018; 74177; 80048; 80053; 81003; 81015; 82805; 83605; 83690; 83735; 84443; 84703; 85025; 85027; 87086; 87502; 87811; 93005; 96374; 96375; 96376; 99285; Q9967

== ENCOUNTER 2025-06-12 20:18 | Emergency (ER) | payer OTHER, SELFPAY ==
[2025-06-12 20:34] VITALS: BP 168/96
[2025-06-12 21:00] VITALS: BP 142/86
[2025-06-12 21:06] VITALS: BMI 41.3
--- NOTE | 2025-06-12 21:38 | ED.GENMED ---
History of Present Illness
General
Chief Complaint: Blood Pressure Problem
Time Seen by Provider: 06/12/25 21:11
History of Present Illness
History of Present Illness:
Patient is a 49-year-old woman with history of hypertension presenting to the emergency department elevated blood pressure. Patient states that she was admitted to the hospital for intractable nausea vomiting. While she was admitted she was off
her antihypertensive. She did not resume her antihypertensives on discharge. On May 25 she had a follow-up with her primary care doctor and was found to have a normal blood pressure. On June 01 patient checked her blood pressure and
noticed it was slightly elevated. She proceeded to check it for a few days and noticed that was elevated in the 140s and 150s. On June 08 she went to her primary care doctor who restarted her 50 mg of losartan. Patient does her taking it for
the past few days. However today noticed that her blood pressure was elevated in the 150s. She does have a mild headache the patient usually has a headache. This is very similar to all her prior headaches. No chest pain. No difficulty
breathing. No urinary changes. No abdominal pain. No numbness tingling weakness or confusion.
Past History
Past History
ED Past Medical History: None and NIDDM
ED Past Surgical History: Tonsilectomy
Social History
Tobacco: Non-smoker
Alcohol: None
Drug: None
Personal:
Living: with family
Phy Exam
Physical Exam
Physical Exam:
GENERAL: in no acute distress
HEENT: normocephalic, extraocular movements intact, moist oral mucosa
NECK: normal inspection
RESPIRATORY: no respiratory distress, clear to auscultation bilaterally
CARDIOVASCULAR: regular rate and rhythm
ABDOMEN/: soft, non-distended, non-tender to palpation, no rebound or guarding
EXTREMITIES: non-tender, no edema/swelling
NEUROLOGIC: awake and alert, moves all extremities
SKIN: warm
Course
Orders/Labs/Results
Orders:
Orders
06/12/25 21:20
Complete Blood Count/With Diff Urgent
Comprehensive Metabolic Panel Urgent
Vital Signs
Initial and Last Documented VS:
Initial Vital Signs
Temp Pulse Resp BP Pulse Ox
97.7 F 92 18 168/96 100
06/12/25 20:34 06/12/25 20:34 06/12/25 20:34 06/12/25 20:34 06/12/25 20:34
Last Documented Vital Signs
Temp Pulse Resp BP Pulse Ox
97.7 F 92 18 142/86 96
06/12/25 20:34 06/12/25 20:34 06/12/25 20:34 06/12/25 21:00 06/12/25 21:01
MDM/Problems Addressed
Differential Diagnosis Includes:
Patient presents to the emergency department complaining of high blood pressure. Patient is otherwise asymptomatic without confusion, chest pain, dysuria, vision changes, focal neurological deficit or SOB. Patient is hypertensive here. Patient just
resumed her hypertensive medication. History and exam not consistent hypertenstive emergency, patient with no signs of AMS, pulmonary edema, heart failure, ACS, PRESS syndrome, intracranial hemorrhage, renal infarction or failure or other end organ
damage. Given patient is asymptomatic will discharge at this time. Patient will continue to take her antihypertensives and complete a blood pressure log. She will follow-up with her PCP.
*Pulse Oximetry
SaO2: 96
Oxygen Mode of Delivery: Room air
Patient hypoxic: no
*Critical Care Note
Total Time (30-74mins, 75-104mins- exclusive of procedures): Not Applicable
ED Attending Note
-
Portions of this chart may have been created with voice recognition software.� Occasional wrong word or��sound alike� substitutions may have occurred due to the inherent limitations of voice recognition software.
Discharge Plan
Departure
Patient Disposition: Home (Routine Discharge)
Date of Disposition: 06/12/25
Time of Disposition: 21:41
Patient with high blood pressure during this ER visit?: Yes
Discharge Problem:
HTN (hypertension)
Instructions: High blood pressure - ED (DC)
Prescriptions:
No Action
losartan 50 mg tablet
50 mg PO DAILY
levothyroxine [Synthroid] 175 mcg tablet
175 mcg PO DAILY
atorvastatin 20 mg tablet
20 mg PO HS
pantoprazole 40 mg tablet,delayed release (DR/EC)
40 mg PO DAILY
Gemtesa 75 mg tablet
75 mg PO DAILY
Mounjaro 15 mg/0.5 mL pen injector
15 mg SC TU
Activity Restrictions/Additional Instructions:
Thank You for choosing [facility].
It was a pleasure meeting you and taking part in your care.
You were seen in the Emergency Department today for elevated blood pressure. Please continue to take your antihypertensives. Please check your blood pressure daily
We would like for you to follow up with your primary care physician for further evaluation. If you experience fever, worsening of your symptoms, or develop any other new or concerning symptoms, please return to the Emergency Department immediately.
Please see the attached sheet for additional information.
Interventions
Interventions:
*Risk Screen - Suicide Last Done: 06/12/25 20:37
*General Assessment Last Done: 06/12/25 20:37
*Neglect/Abuse Screening Last Done: 06/12/25 20:37
*ED- Fall Risk Assessment Last Done: 06/12/25 21:20
*ED COVID-19 Vaccine History Last Done: 06/12/25 20:37
*ED Influenza Vaccine History Last Done: 06/12/25 20:37
ED- Cardiac Assessment Last Done: 06/12/25 21:07
ED- Neurological Assessment Last Done: 06/12/25 21:07
ED- Pulmonary Assessment Last Done: 06/12/25 21:07
Discharge Date and Time
Print Language: PASHTO
[2025-06-12 22:00] VITALS: BP 116/80
== END 2025-06-12 23:09 | disposition home or self-care (01) ==
LOC: EMR 20:18
PROVIDERS: EMERGENCY PHYSICIAN Student in an Organized Health Care Education/Training Program; FAMILY PHYSICIAN Family Medicine
DX: I10 Essential (primary) hypertension (principal); E11.9 Type 2 diabetes mellitus without complications; Z79.85 Long-term (current) use of injectable non-insulin antidiabetic drugs; T46.5X6A Underdosing of other antihypertensive drugs, initial encounter; Z91.148 Patient's other noncompliance with medication regimen for other reason
CPT/HCPCS: 99282